=== PATIENT | male | born 1960 | race Caucasian/White ===

== ENCOUNTER 2019-06-24 11:44 | Emergency (ER) | payer BC ==
[2019-06-24 12:14] VITALS: BP 126/79
--- NOTE | 2019-06-24 13:53 | UC ---
Throat Pain/Nasal Yonis HPI - HPI Summary HPI Summary: 3 weeks ago developed sinus congestion, discharge, malaise, cough, low grade fever. This gradually improved. Comes today because he woke up this morning with recurrent congestion and a wheezy sensation. Symptoms have improved with use of sudafed. Travelling to [facility] this weekend. - History of Current Complaint Chief Complaint: UCRespiratory Stated Complaint: SINUS AND CHEST CONGESTION Time Seen by Provider: 06/24/19 13:43 Hx Obtained From: Patient Onset/Duration: Gradual Onset, Lasting Weeks Pain Intensity: 0 Cough: Nonproductive Associated Signs & Symptoms: Positive: Sinus Discomfort - Epiglottits Risk Factors Epiglottis Risk Factors: Negative - Allergies/Home Medications Allergies/Adverse Reactions: Allergies Allergy/AdvReac Type Severity Reaction Status Date / Time Penicillins Allergy Rash Verified 06/24/19 12:14 Home Medications: Home Medications NK [No Home Medications Reported] 06/24/19 [History Confirmed 06/24/19] PMH/Surg Hx/FS Hx/Imm Hx Previously Healthy: Yes - Surgical History Surgical History: Yes Surgery Procedure, Year, and Place: 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 - Family History Known Family History: Positive: Non-Contributory - Social History Occupation: Employed Full-time Lives: With Family Alcohol Use: Daily Substance Use Type: None Smoking Status (MU): Never Smoked Tobacco Review of Systems All Other Systems Reviewed And Are Negative: Yes Constitutional: Positive: Fatigue Skin: Positive: Negative Eyes: Positive: Negative ENT: Positive: Sore Throat - off and on, Sinus Congestion - off and on Respiratory: Positive: Cough - off and on Cardiovascular: Positive: Negative Gastrointestinal: Positive: Negative Genitourinary: Positive: Negative Motor: Positive: Negative Neurovascular: Positive: Negative Neurological: Positive: Negative Psychological: Positive: Negative Is Patient Immunocompromised?: No Physical Exam Appearance: Well-Appearing, No Pain Distress Vital Signs: Initial Vital Signs Temp 97 F 06/24/19 12:10 Pulse 71 06/24/19 12:10 Resp 18 06/24/19 12:10 BP 126/79 06/24/19 12:10 Pulse Ox 98 06/24/19 12:10 Eyes: Positive: Conjunctiva Clear ENT: Positive: Pharyngeal erythema, TM dull - Bilateral serous fluid Neck: Positive: Supple, Nontender, No Lymphadenopathy Respiratory: Positive: Lungs clear, Normal breath sounds Cardiovascular: Positive: RRR, No Murmur Musculoskeletal Exam: Normal Neurological Exam: Normal Psychological Exam: Normal Skin Exam: Normal Throat Pain/Nasal Course/Dx - Course Course Of Treatment: Continue symptomatic treatment of viral illness. Discussed prolonged symptoms without findings suggestive of a bacterial sinusitis. - Differential Dx/Diagnosis Differential Diagnosis/HQI/PQRI: Sinusitis, URI Provider Diagnosis: URI, acute Discharge ED - Sign-Out/Discharge Documenting (check all that apply): Patient Departure All imaging exams completed and their final reports reviewed: No Studies - Discharge Plan Condition: Stable Disposition: HOME Patient Education Materials: Upper Respiratory Infection (ED) Referrals: Kunal Nevarez MD [Primary Care Provider] - Additional Instructions: Continue symptomatic treatment at this time, with use of sudafed, saline spray, high intake of fluids, rest. Over the cougner Flonase spray often helps to decrease the amount of drainage. Follow up if you develop shortness of breath or fever. - Billing Disposition and Condition Condition: STABLE Disposition: Home
== END 2019-06-24 14:13 | disposition home or self-care (01) ==
LOC: UCEAST 11:44
DX: J06.9 Acute upper respiratory infection, unspecified (principal); Z88.0 Allergy status to penicillin
CPT/HCPCS: 99211; G0463